=== PATIENT | female | born 1945 | race Caucasian/White ===

== ENCOUNTER 2018-01-28 21:14 | Observation (INO) | payer OTHER, MEDICARE ==
[~2018-01-28] VITALS: Ht 160 cm; Wt 51.4 kg
[2018-01-28 22:01] LABS: ALBUMIN 4.3 gm/dl (3.4-5.0); CALCIUM 9.3 mg/dl (8.5-10.1); CREATININE 0.87 mg/dl (0.60-1.20); POTASSIUM 3.3 mmol/L (3.5-5.1)
[2018-01-28 22:02] LABS: HEMATOCRIT 39.1 % (37-47); HEMOGLOBIN 13.8 g/dL (12.0-16.0); MEAN CELL VOLUME 88.5 fL (80-100); MEAN CORPUSCULAR HEMOGLOBIN 31.2 pg (25-34); MEAN CORPUSCULAR HGB CONC 35.3 g/dl (32-36); MEAN PLATELET VOLUME 9.2 fL (7.4-10.4); PLATELET COUNT 224 K/uL (130-400); RED CELL DISTRIBUTION WIDTH CV 12.8 % (11.5-14.5); WHITE BLOOD COUNT 7.36 K/uL (4.8-10.8)
[2018-01-28 22:06] LABS: CKMB 0.9 ng/ml (0.5-3.6); TOTAL PROTEIN 7.5 gm/dl (6.4-8.2)
[2018-01-28 22:07] LABS: PTT PATIENT 27.6 SECONDS (21.0-31.0)
[2018-01-28] MEDS ORDERED: NITROGLYCERIN 0.4 MG SL PER TAB CHARGE SL PRN (22:15)
[2018-01-28] MEDS ORDERED: LOSA50TA6 PO (22:32)
[2018-01-28] MEDS ORDERED: AMLO-110 PO (22:33)
[2018-01-28] MEDS ORDERED: CHOL20007 PO (22:34)
[2018-01-28] MEDS ORDERED: OMEG10007 PO (22:35)
[2018-01-28] MEDS ORDERED: CYAN500T13 PO (22:36)
[2018-01-28] MEDS ORDERED: ASPI81TA28 PO (22:36)
[2018-01-28] MEDS ORDERED: COEN100C11 PO (22:38)
[2018-01-28] MEDS ORDERED: MULT-506 PO (22:39)
[2018-01-28] MEDS ORDERED: ACET-1256 PO (22:39)
[2018-01-28] MEDS ORDERED: PRLSR20 PO (22:41)
[2018-01-28] MEDS ORDERED: PRAV20TA PO (22:43)
--- NOTE | 2018-01-28 22:53 | DIAGNOSTIC IMAGING REPORT ---
CHEST ONE VIEW PORTABLE CLINICAL HISTORY: 72 years-old Female presenting with chest pain. TECHNIQUE: Portable upright AP view of the chest was obtained. COMPARISON: None. FINDINGS: Cardiac silhouette mildly enlarged. Lungs hyperinflated. No focal opacity. No large effusion or pneumothorax. Partially visualized anterior cervical fusion hardware. Upper abdomen normal. IMPRESSION: 1. Hyperinflation suggests underlying emphysema. No focal infiltrate to suggest pneumonia. 2. Borderline cardiomegaly. Electronically signed by: Carlos Riddle M.D. 01/28/2018 10:52 PM Dictated Date/Time: 01/28/2018 10:51 PM
[2018-01-29] VITALS (7 sets, daily range): BP systolic 94–160; BP diastolic 62–89; PULSE 54–77; TEMP 36.5–36.7; O2SAT 95–97; Ht 160 cm; Wt 51.4 kg
[2018-01-29] MEDS ORDERED: ACETAMINOPHEN 325 MG TAB PO PRN (00:30)
[2018-01-29] MEDS ORDERED: ALUMINUM/MAGNESIUM/SIMETH (MAALOX MAX) 30 ML UDC PO PRN (00:30)
[2018-01-29] MEDS ORDERED: ONDANSETRON INJ 2 MG/ML 2 ML VIAL IV PRN (00:30)
[2018-01-29] MEDS ORDERED: MAGNESIUM HYDROXIDE SUSP 30 ML UDC PO PRN (00:30)
[2018-01-29] MEDS ORDERED: POLYETHYLENE (MIRALAX) 17 GM PACK PO PRN (00:30)
[2018-01-29] MEDS ORDERED: MoRPHine SULFATE 2 MG/ML CARP IV PRN ×2 (00:30)
[2018-01-29] MEDS ORDERED: NITROGLYCERIN 0.3 MG/1 TAB 100 TAB BTL SL PRN (00:30)
[2018-01-29] MEDS ORDERED: NITROGLYCERIN 0.4 MG SL PER TAB CHARGE SL PRN (00:30)
[2018-01-29] MEDS ORDERED: POTASSIUM CHLORIDE 20 MEQ TABCR PO STA (00:31)
[2018-01-29] MEDS ORDERED: HEPARIN 25000 UNIT/500 ML D5W ONE (00:45)
[2018-01-29] MEDS ORDERED: POTASSIUM CHLORIDE 10 MEQ TABCR ONE (00:45)
--- NOTE | 2018-01-29 00:52 | History and Physical ---
History & Physical Date & Time of Service: Jan 29, 2018 at 00:36 Chief Complaint: Chest Pain, Elevated Bp 180/100 Primary Care Physician: Yonatan Chamorro M.D. History of Present Illness Source: patient Paty is a 72 year old female with a PMH of HTN and HLD that presented to [facility] due to persistent chest pain Her chest pain started suddenly in the center of her chest at 8pm. She was sitting on her couch and watching tv when she started experiencing this pain. She says it feels like something is sitting on her chest. She says the pain radiates up to her neck and down her left arm. She says the pain is made worse with exertion and better with rest. She rates the pain as a 6/10 in severity. She has never had similar symptoms before Her associated symptoms include shortness of breath, dizziness and palpitations. She denies any diaphoresis, PND, persistent cough, abdominal pain, nausea, vomiting, recent trauma to her chest, sore throat/stuffy nose, or rashes In the ED her vitals were significant for a blood pressure of 166/103 but all her other vital signs are within normal limits. Her labs were significant for a potassium of 3.3. Her CXR showed borderline cardiomegaly, and emphysema. She had an EKG which showed st depressions in leads 2, AVF and v4-v 6. She had a negative troponin. Past Medical/Surgical History Medical Problems: (1) Chest pain (2) HLD (hyperlipidemia) (3) HTN (hypertension) Family History Cancer Diabetes mellitus Gallbladder disease Heart disease Hypertension Dad- stroke Mom- [place] Sister- Bypass and stents Social History Smoking Status: Never Smoker Smokeless Tobacco Use: No Alcohol Use: none Drug Use: none Marital Status: single Housing status: lives alone Occupational Status: retired Immunizations History of Influenza Vaccine: Unknown History of Tetanus Vaccine?: Unknown History of Pneumococcal: Unknown History of Hepatitis B Vaccine: Unknown Allergies Coded Allergies: Adhesives (Verified Allergy, Mild, ERRYTHEMA, 01/28/18) Latex (Verified Allergy, Mild, ERRYTHEMA, 01/28/18) Home Medications Scheduled Amlodipine (Norvasc), 5 MG PO DAILY Aspirin (Aspirin Ec), 81 MG PO DAILY Cholecalciferol (Vitamin D3), 2,000 UNITS PO DAILY Coenzyme Q10 (Ubidecarenone) (Coq-10), 100 MG PO DAILY Cyanocobalamin (Vitamin B12 500MCG), 500 MCG PO DAILY Fish Oil ([place]-3), 1,200 MG PO DAILY Losartan Potassium (Cozaar), 50 MG PO QAM Multivitamin (Multivitamin), 1 TAB PO DAILY Omeprazole (Prilosec), 20 MG PO DAILY Pravastatin (Pravachol ), 20 MG PO DAILY Scheduled PRN Acetaminophen (Tylenol), 500 MG PO Q8 PRN for Pain Review of Systems Constitutional: No fever, No chills, No weakness, No fatigue Respiratory: + shortness of breath, + dyspnea on exertion, No cough, No hemoptysis Cardiovascular: + chest pain, + palpitations, No orthopnea, No PND, No edema, No claudication Abdomen: No pain, No nausea, No vomiting, No diarrhea, No constipation Musculoskeletal: No swelling, No calf pain Genitourinary - Female: No dysuria, No urinary frequency, No urinary urgency Hematologic / Lymphatic: No abnormal bleeding/bruising, No clotting problems Integumentary: No rash, No itch, No new/changing skin lesions Physical Exam Vital Signs Date Time Temp Pulse Resp B/P (MAP) Pulse Ox O2 Delivery O2 Flow Rate FiO2 01/28/18 23:00 61 16 140/80 97 Room Air 01/28/18 22:30 65 16 138/78 96 Room Air 01/28/18 22:22 74 16 155/95 97 Room Air 01/28/18 21:42 60 01/28/18 21:38 100 Room Air 01/28/18 21:32 95 Room Air 01/28/18 21:25 Room Air 01/28/18 21:20 36.4 70 16 166/103 100 Room Air General Appearance: WD/WN, no apparent distress Head: normocephalic, atraumatic ENT: hearing grossly normal, pharynx normal Neck: supple, no JVD, no carotid bruits, trachea midline Respiratory/Chest: lungs clear, no respiratory distress, no accessory muscle use Cardiovascular: regular rate, rhythm, no edema, no murmur, normal peripheral pulses Abdomen/GI: normal bowel sounds, non tender, soft Extremities/Musculoskelatal: normal inspection, no calf tenderness, no pedal edema, non-tender Neurologic/Psych: alert, normal mood/affect, oriented x 3 Skin: normal color, warm/dry, no rash Diagnostics Laboratory Results Results Past 24 Hours Test 01/28/18 21:25 01/28/18 21:41 01/29/18 00:21 01/29/18 00:26 Range/Units White Blood Count 7.36 4.8-10.8 K/uL Red Blood Count 4.42 4.2-5.4 M/uL Hemoglobin 13.8 12.0-16.0 g/dL Hematocrit 39.1 37-47 % Mean Corpuscular Volume 88.5 80-100 fL Mean Corpuscular Hemoglobin 31.2 25-34 pg Mean Corpuscular Hemoglobin Concent 35.3 32-36 g/dl RDW Standard Deviation 41.0 36.4-46.3 fL RDW Coefficient of Variation 12.8 11.5-14.5 % Platelet Count 224 130-400 K/uL Mean Platelet Volume 9.2 7.4-10.4 fL Prothrombin Time 10.2 9.0-12.0 SECONDS Prothromb Time International Ratio 1.0 0.9-1.1 Activated Partial Thromboplast Time 27.6 21.0-31.0 SECONDS Partial Thromboplastin Ratio 1.1 Sodium Level 137 136-145 mmol/L Potassium Level 3.3 3.5-5.1 mmol/L Chloride Level 105 98-107 mmol/L Carbon Dioxide Level 25 21-32 mmol/L Anion Gap 7.0 3-11 mmol/L Blood Urea Nitrogen 10 7-18 mg/dl Creatinine 0.87 0.60-1.20 mg/dl Est Creatinine Clear Calc Drug Dose 48.8 ml/min Estimated GFR () 78.2 Estimated GFR (Non- 67.5 BUN/Creatinine Ratio 11.8 10-20 Random Glucose 98 70-99 mg/dl Calcium Level 9.3 8.5-10.1 mg/dl Total Bilirubin 0.5 0.2-1 mg/dl Aspartate Amino Transf (AST/SGOT) 19 15-37 U/L Alanine Aminotransferase (ALT/SGPT) 23 12-78 U/L Alkaline Phosphatase 100 45-117 U/L Total Creatine Kinase 65 26-192 U/L Creatine Kinase MB 0.9 0.5-3.6 ng/ml Creatine Kinase MB Ratio 1.4 0-3.0 Total Protein 7.5 6.4-8.2 gm/dl Albumin 4.3 3.4-5.0 gm/dl Globulin 3.2 2.5-4.0 gm/dl Albumin/Globulin Ratio 1.4 0.9-2 Bedside Troponin I < 0.030 0-0.045 ng/ml Diagnostic Radiology CXR borderline cardiomegaly and emphysema EKG ST depressions in lead 2, Avf and v4-v6 Impression Assessment and Plan Paty is a 72 year old female with a PMH of HLD and HTN that presented to [facility] with chest pain Acute coronary syndrome (unstable angina) - trend trop - repeat EKG - nitro and morphine prn chest pain - heparin drip - O2 as needed - continue statin - order Hba1c and lipid panel Hypokalemia and hx of persistent HTN - order renin and aldosterone to assess for hyperaldosteronism - follow up with PCP Hypokalemia - K of 3.3 - order Mag - administer 40 meq of potassium PO - repeat bmp HTN - continue losartan and norvasc HLD - continue pravastatin DVT prophylaxis - heparin drip FULL CODE Attending addendum: I have physically seen this patient, have supervised the medical residents activities, and agree with the H&P unless as otherwise noted. Assessment and Plan: Acute coronary syndrome/unstable angina/hypertension/hypokalemia-- The patient will be admitted to telemetry for serial cardiac enzymes, serial EKG's, cardiac rhythm monitoring and a 2-D echocardiogram with Dopplers. Heparin drip per standard concentration with low bolus. We will hemoglobin A1c and fasting lipid panel. Order renin and aldosterone levels to assess for hyperaldosteronism. Give 40 mEq potassium chloride now. Continue losartan and Norvasc. Check serial BMP, CBC with differential and magnesium levels. Hyperlipidemia continue pravastatin Advanced Directives Existing Advance Directive: No Existing Living Will: No Existing Power of Director Of Labor Relations: No Resuscitation Status VTE Prophylaxis Will order VTE Prophylaxis: Yes
[2018-01-29 01:14] LABS: BASO % 0.7 %; BASO ABS # 0.05 K/uL (0-0.2); EOS % 2.6 %; EOS ABS # 0.19 K/uL (0-0.5); IG# 0.01 K/uL (0.00-0.02); LYMPH % 33.2 %; MONO % 10.1 %; MONO ABS # 0.73 K/uL (0.11-0.59); NEUT % 53.3 %; NEUT ABS # 3.85 K/uL (1.4-6.5)
[2018-01-29] MEDS ORDERED: HEPARIN 25,000 UNIT/500ML D5W 500 ML IV SCH (02:45)
--- NOTE | 2018-01-29 02:54 | EMERGENCY ROOM VISIT NOTE ---
History Report prepared by Adis: Juanito Woo Under the Supervision of: Dr. Gil Smith M.D. First contact with patient: 21:59 Chief Complaint: CHEST PAIN Stated Complaint: CHEST PAIN, ELEVATED BP 180/100 Nursing Triage Summary: Pt reports " burning" midsternal chest discomfort radiates to neck starting at 1999 this evening. Pt c/o SOb with pain. Pt took 3 baby ASA today. History of Present Illness The patient is a 72 year old female who presents to the Emergency Room with complaints of constant chest pain that began at 1999. She rates her pain as a 5/ 10 in severity. She describes the pain as a burning sensation The patient states she developed nausea around dinner time. She reports that she then was watching television when she developed chest pain, shortness of breath, and dizziness. The patient states her pain radiated to her jaw and neck. She reports she took 3 Aspirin for her symptoms. The patient states she has been experiencing this chest pain almost every day for the last couple of weeks. She reports saw her PCP, Dr. Chamorro, for her symptoms who was concerned about the patient's heart. The patient states she scheduled an appointment with Cardiology in two weeks. Dr. Chamorro. The patient denies LOC, headache, fevers, chills, diaphoresis, visual changes, vomiting, abdominal pain, back pain, melena , hematochezia, urinary symptoms, numbness, weakness, lymphadenopathy, rash, or other complaints. Source of History: patient Onset: 1999 Position: chest Symptom Intensity: 5/10 Quality: burning Timing: constant Modifying Factors (Relieving): other (Aspirin) Associated Symptoms: + SOB, + nausea Note: Associated symptoms: dizziness Review of Systems See HPI for pertinent positives and negatives. A total of ten systems were reviewed and were otherwise negative. Past Medical & Surgical Medical Problems: (1) Chest pain (2) HLD (hyperlipidemia) (3) HTN (hypertension) Family History Cancer Diabetes mellitus Gallbladder disease Heart disease Hypertension Social History Smoking Status: Never Smoker Housing Status: lives alone Occupation Status: retired Current/Historical Medications Scheduled Amlodipine (Norvasc), 5 MG PO DAILY Aspirin (Aspirin Ec), 81 MG PO DAILY Cholecalciferol (Vitamin D3), 2,000 UNITS PO DAILY Coenzyme Q10 (Ubidecarenone) (Coq-10), 100 MG PO DAILY Cyanocobalamin (Vitamin B12 500MCG), 500 MCG PO DAILY Fish Oil ([place]-3), 1,200 MG PO DAILY Losartan Potassium (Cozaar), 50 MG PO QAM Multivitamin (Multivitamin), 1 TAB PO DAILY Omeprazole (Prilosec), 20 MG PO DAILY Pravastatin (Pravachol ), 20 MG PO DAILY Scheduled PRN Acetaminophen (Tylenol), 500 MG PO Q8 PRN for Pain Allergies Coded Allergies: Adhesives (Verified Allergy, Mild, ERRYTHEMA, 01/28/18) Latex (Verified Allergy, Mild, ERRYTHEMA, 01/28/18) Physical Exam Vital Signs Date Time Temp Pulse Resp B/P (MAP) Pulse Ox O2 Delivery O2 Flow Rate FiO2 01/28/18 23:00 61 16 140/80 97 Room Air 01/28/18 22:30 65 16 138/78 96 Room Air 01/28/18 22:22 74 16 155/95 97 Room Air 01/28/18 21:42 60 01/28/18 21:38 100 Room Air 01/28/18 21:32 95 Room Air 01/28/18 21:25 Room Air 01/28/18 21:20 36.4 70 16 166/103 100 Room Air Physical Exam GENERAL: Awake, alert, well-appearing, in no distress HENT: Normocephalic, atraumatic. Oropharynx unremarkable. EYES: Normal conjunctiva. Sclera non-icteric. NECK: Supple. No nuchal rigidity. FROM. No masses. RESPIRATORY: Clear to auscultation. No wheezes. No rales. Normal respiratory effort. CARDIAC: Normal rate. Normal rhythm. No murmurs. No rubs. Extremities warm and well perfused. Pulses equal. No JVD. GI: Soft, non-distended. No tenderness to palpation. No rebound or guarding. No masses. RECTAL: Deferred. MUSCULOSKELETAL: Atraumatic. Chest examination reveals no tenderness. The back is symmetrical on inspection without obvious abnormality. There is no CVA tenderness to palpation. No joint edema. LOWER EXTREMITIES: Calves are equal size bilaterally and non-tender. No edema. No discoloration. NEURO: Normal sensorium. No sensory or motor deficits noted. SKIN: No rash or jaundice noted. Medical Decision & Procedures ER Provider Diagnostic Interpretation: X-ray: Per my interpretation and review. Chest x-ray. Findings: A chest x-ray was performed and revealed no pneumothorax , effusion, infiltrate, pulmonary edema, free air under the diaphragm, or wide mediastinum. Laboratory Results 01/28/18 21:25 Red Blood Count 4.42, Mean Corpuscular Volume 88.5, Mean Corpuscular Hemoglobin 31.2, Mean Corpuscular Hemoglobin Concent 35.3, Mean Platelet Volume 9.2, Neutrophils (%) (Auto) 53.3, Lymphocytes (%) (Auto) 33.2, Monocytes (%) (Auto) 10.1, Eosinophils (%) (Auto) 2.6, Basophils (%) (Auto) 0.7, Neutrophils # (Auto ) 3.85, Lymphocytes # (Auto) 2.40, Monocytes # (Auto) 0.73, Eosinophils # (Auto ) 0.19, Basophils # (Auto) 0.05 01/28/18 21:25 Test 01/28/18 21:25 01/28/18 21:41 01/29/18 00:26 White Blood Count 7.36 K/uL (4.8-10.8) Red Blood Count 4.42 M/uL (4.2-5.4) Hemoglobin 13.8 g/dL (12.0-16.0) Hematocrit 39.1 % (37-47) Mean Corpuscular Volume 88.5 fL (80-100) Mean Corpuscular Hemoglobin 31.2 pg (25-34) Mean Corpuscular Hemoglobin Concent 35.3 g/dl (32-36) Platelet Count 224 K/uL (130-400) Mean Platelet Volume 9.2 fL (7.4-10.4) Neutrophils (%) (Auto) 53.3 % Lymphocytes (%) (Auto) 33.2 % Monocytes (%) (Auto) 10.1 % Eosinophils (%) (Auto) 2.6 % Basophils (%) (Auto) 0.7 % Neutrophils # (Auto) 3.85 K/uL (1.4-6.5) Lymphocytes # (Auto) 2.40 K/uL (1.2-3.4) Monocytes # (Auto) 0.73 K/uL (0.11-0.59) Eosinophils # (Auto) 0.19 K/uL (0-0.5) Basophils # (Auto) 0.05 K/uL (0-0.2) RDW Standard Deviation 41.0 fL (36.4-46.3) RDW Coefficient of Variation 12.8 % (11.5-14.5) Immature Granulocyte % (Auto) 0.1 % Immature Granulocyte # (Auto) 0.01 K/uL (0.00-0.02) Nucleated RBC Absolute Count (auto) 0.00 K/uL (0-0) Nucleated Red Blood Cells % 0.0 % Prothrombin Time 10.2 SECONDS (9.0-12.0) Prothromb Time International Ratio 1.0 (0.9-1.1) Activated Partial Thromboplast Time 27.6 SECONDS (21.0-31.0) Partial Thromboplastin Ratio 1.1 Anion Gap 7.0 mmol/L (3-11) Est Creatinine Clear Calc Drug Dose 48.8 ml/min Estimated GFR () 78.2 Estimated GFR (Non- 67.5 BUN/Creatinine Ratio 11.8 (10-20) Calcium Level 9.3 mg/dl (8.5-10.1) Total Bilirubin 0.5 mg/dl (0.2-1) Aspartate Amino Transf (AST/SGOT) 19 U/L (15-37) Alanine Aminotransferase (ALT/SGPT) 23 U/L (12-78) Alkaline Phosphatase 100 U/L (45-117) Total Creatine Kinase 65 U/L (26-192) Creatine Kinase MB 0.9 ng/ml (0.5-3.6) Creatine Kinase MB Ratio 1.4 (0-3.0) Total Protein 7.5 gm/dl (6.4-8.2) Albumin 4.3 gm/dl (3.4-5.0) Globulin 3.2 gm/dl (2.5-4.0) Albumin/Globulin Ratio 1.4 (0.9-2) Bedside Troponin I < 0.030 ng/ml (0-0.045) Laboratory results reviewed by me Medications Administered Medications (Trade) Dose Ordered Sig/Enoch Route Start Time Stop Time Status Last Admin Dose Admin Nitroglycerin (Nitrostat Tab) 0.4 mg Q5M PRN SL 01/28/18 22:15 01/29/18 01:48 DC 01/28/18 22:22 0.4 MG ECG Per My Interpretation Indication: chest pain Rate (beats per minute): 70 Rhythm: normal sinus Findings: nonspecific-ST abn, PAC ED Course 2208: The patient was evaluated in room C02B. A complete history and physical exam was performed. 2214: Ordered Nitroglycerin 0.4 mg SL. 2338: I discussed the patients case with Dr. Carrasco [facility] Hospitalist. He understands the patients case and agrees to accept the patient. The patient will be further evaluated. Medical Decision Prior records/ancillary studies reviewed. Triage Nursing notes reviewed and agree them. Additional history obtained from the family. The patient's history was concerning for chest pain. Differential diagnosis: Etiologies such as cardiac ischemia, aortic dissection, pulmonary embolism, pneumonia, pneumothorax, musculoskeletal, infections, pericarditis, myocarditis , esophageal rupture, gastrointestinal, as well as others were entertained. Physical examination: As above. ER treatment provided: Sublingual nitroglycerin The patient had taken aspirin. Diagnostic interpretation by me: The electrocardiogram was negative for pathologic change. The labs revealed an unremarkable CBC and chemistry panel. Cardiac markers negative. Imaging studies: Chest x-ray as above. The patient has had intermittent but escalating substernal chest pain. She will need further evaluation and management in the hospital. Consultation: A consultation was placed with the hospitalist. The case was discussed and diagnostics were reviewed. The patient was evaluated in the ER for further treatment. Medication Reconcilliation Current Medication List: was personally reviewed by me Blood Pressure Screening Patient's blood pressure: Elevated blood pressure Referred to Hospitalist Consults Time Called: [id number] Consulting Physician: Dr. Carrasco [facility] Hospitalist Returned Call: [phone] I discussed the patients case with Dr. Carrasco [facility] Hospitalist. He understands the patients case and agrees to accept the patient. The patient will be further evaluated. Impression Primary Impression: Substernal precordial chest pain Scribe Attestation The scribe's documentation has been prepared under my direction and personally reviewed by me in its entirety. I confirm that the note above accurately reflects all work, treatment, procedures, and medical decision making performed by me. Departure Information Dispostion Being Evaluated By Hospitalist Referrals Yonatan Chamorro M.D. (PCP) Patient Instructions My [facility]
[2018-01-29] MEDS: SODIUM CHLORIDE 0.9% 1000ML 1,000 ML IV SCH ×2 (03:01→13:17)
[2018-01-29] MEDS ORDERED: IV FLUIDS COMPLETED PRN (06:30)
[2018-01-29 07:58] LABS: PTT PATIENT 105.9 SECONDS (21.0-31.0)
[2018-01-29] MEDS ORDERED: LOSARTAN POTASSIUM 50 MG TAB PO SCH (09:00)
[2018-01-29] MEDS ORDERED: PRAVASTATIN SOD 20 MG TAB PO SCH (09:00)
[2018-01-29] MEDS ORDERED: AMLODIPINE BESYLATE 5 MG TAB PO SCH (09:00)
[2018-01-29] MEDS ORDERED: HYDROCHLOROTHIAZIDE 25 MG TAB PO ONE (09:31)
[2018-01-29 09:34] LABS: CHOLESTEROL 161 mg/dl (0-200); LDL CHOLESTEROL CALCULATED 95 mg/dl
[2018-01-29 10:04] LABS: HEMOGLOBIN A1C 5.4 % (4.5-5.6)
[2018-01-29] MEDS ORDERED: ASPIRIN 81 MG ECTAB PO STA (10:10)
[2018-01-29] MEDS ORDERED: DOBUTamine HCL 12.5 MG/ML 20 ML VIAL ONE (10:35)
[2018-01-29] MEDS ORDERED: METOPROLOL TARTRATE 1 MG/ML VIAL ONE ×2 (10:35→10:36)
[2018-01-29] MEDS ORDERED: ATROPINE SULFATE 0.1 MG/ML 5ML SYR ONE ×2 (10:36)
[2018-01-29] MEDS ORDERED: PERFLUTREN LIPID MICROSPHERE (DEFINITY) IV ONE (11:04)
--- NOTE | 2018-01-29 11:56 | CARDIOLOGY CONSULTATION ---
DATE OF CONSULTATION: 01/29/2018 TIME: 10:06 a.m. CONSULTING PHYSICIAN: Dr. Ochoa REASON FOR CONSULTATION: Unstable angina. HISTORY OF PRESENT ILLNESS: Mrs. Sibley is a pleasant 72-year-old female with a history significant for mild nonobstructive CAD based on March 2016 catheterization, hypertension, dyslipidemia. She previously has followed with [facility], but has an upcoming appointment with [facility] in the next 2 weeks. She has been having intermittent chest discomfort for at least 3 years. She describes the discomfort as a substernal chest pain that radiates to her neck and jaw as a squeezing and pressure sensation. It is not associated with exertion, but sometimes can worsen with exertion. In March 2016, she underwent a coronary angiography for these symptoms at [facility]. She was told that she did not have CAD, but according to prior feller operator's notes, she had mild nonobstructive CAD and her pain was thought to be noncardiac in nature. Yesterday while watching TV in a seated position and while on the telephone having a nonstressful conversation, she developed the same chest discomfort. It started at 8:00 p.m. and did not resolve until 1:00 a.m. She was given nitroglycerin which may have offered her some mild relief. She noted at home that her blood pressure was 180/100 mmHg when she had this pain. She had mild dyspnea, but no diaphoresis. No other associated symptoms. She noted that walking around her home did cause mild worsening of the pain. The pain eventually resolved while she was hospitalized and has not recurred. She states that she has had intermittent palpitations for years. She states that sometimes her heart rate can be in the 40s and other times can be mildly tachycardic. She has had outpatient monitoring and has not had any specific diagnosis. The palpitations occur most days and she has had palpitations while hospitalized here. Telemetry has not demonstrated any arrhythmia. Since October she has had dyspnea with exertion while climbing hills or walking fast. She walks every day for 15 minutes. This is a new symptom for her. She tries to maintain a low sodium diet. She denies orthopnea, PND, or shortness of breath at rest. She denies syncope, near syncope, or edema. She admits that she has intermittent nausea and difficulty swallowing. She has had EGDs in the past. She also has myalgias. Her statin therapy has been stopped and then restarted. The ER physician in the recent past has told her the amlodipine could be causing her symptoms. Her PCP, Dr. Chamorro, has been adjusting her antihypertensive regimen by recently increasing losartan from 25 mg to 50 mg daily. Her pravastatin was also recently restarted at 20 mg daily. She notices that her blood pressure tends to be higher in the evenings. REVIEW OF SYSTEMS: As above and review of systems otherwise negative/unremarkable. PAST MEDICAL HISTORY: 1. Mild nonobstructive CAD, in March 2016 cardiac catheterization at [facility] [place]. Records are being requested. 2. Chronic atypical chest discomfort. 3. Hypertension. 4. Dyslipidemia. 5. Acid reflux. 6. Osteoporosis. 7. Chronic palpitations. HOME MEDICATIONS: Include amlodipine 5 mg daily, aspirin 81 mg daily, fish oil, losartan 50 mg daily, pravastatin 20 mg daily, Prilosec. INPATIENT MEDICATIONS: Include: 1. Heparin drip. 2. Amlodipine 5 mg daily. 3. Losartan 50 mg daily. 4. Pravastatin 20 mg daily. ALLERGIES: LISTED ADHESIVES AND LATEX. She denied any known drug allergies. SOCIAL HISTORY: Denies tobacco, alcohol, or drug abuse. She has never been . She has no children. She lives alone. 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 FAMILY HISTORY: Her mother had myocardial infarction. Her dad had stroke. PHYSICAL EXAMINATION: VITAL SIGNS: Temperature 36.7 degrees, heart rate 68 beats per minute, respiration rate 20, blood pressure 107/69 mmHg, oxygen saturation 96% on room air. Weight 51.4 kg. GENERAL: In no acute distress. She is alert and oriented. HEENT: Anicteric sclerae. NECK: No appreciable JVD. No bruits. Normal carotid upstrokes bilaterally. CARDIAC EXAMINATION: No ventricular heave. PMI was nondisplaced. Regular, normal S1, S2. There were no audible murmurs, rubs, or gallops. LUNGS: Clear to auscultation bilaterally without wheezes, rales, or rhonchi. ABDOMEN: Soft, nontender, nondistended. Normoactive bowel sounds. EXTREMITIES: No cyanosis or edema. 1+ right radial pulse, 2+ left radial pulse (She has had prior coronary angiography via the right radial artery). 2+ dorsalis pedis pulses bilaterally. No cyanosis or pitting edema. No palpable cords. PSYCHIATRIC: Affect appears appropriate. CHEST: Tenderness along the sternum reproducing her chest discomfort upon presentation. SKIN: No rash. LABORATORY DATA: White blood cell count is 7.36, hemoglobin 13.8, platelets 224. Sodium 137, potassium 3.3, BUN 10, creatinine 0.87. Troponin undetectable x3. Albumin 4.3, AST 19, ALT 23. LDL 95, triglycerides 57, total cholesterol 161, HDL 55. INR 1. She also reports having a D-dimer 3 weeks ago at the Emergency Department at [facility] and that was unremarkable according to her report. Chest x-ray suggests underlying emphysema per radiology. No focal infiltrate. Chest x-ray image personally reviewed. No obvious infiltrate or suspicion for CHF upon personal review. No pleural effusion. Outpatient chart reviewed. First ECG personally reviewed. The ECG upon presentation demonstrated sinus rhythm at 70 beats per minute with a nonspecific ST abnormality. Telemetry personally reviewed. No arrhythmia. ASSESSMENT AND PLAN: 1. 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 Her chest discomfort is atypical and not likely ischemic in origin as she has had several hours of chest discomfort with negative troponins. Given her dyspnea with exertion, however, a dobutamine stress echo was ordered. She states that she is unable to walk on a treadmill. If unremarkable, we would recommend further evaluation for noncardiac chest pain. Musculoskeletal pain is a possibility as she is tender in that area reproducing her pain. Heparin drip can be discontinued as she does not have unstable angina. 2. Coronary artery disease: She has mild nonobstructive coronary artery disease per report from March 2016 coronary angiography. Cardiac catheterization report requested for review. Continue aspirin 81 mg daily. This was ordered at this time. We would recommend high intensity statin therapy, but that there have been concerns for statin-induced myalgias. No change was made to her chronic dose of pravastatin. Blood pressure control is important. Continue ARB. She is not on a beta-marybeth. She has had reported bradycardia in the past with symptoms. 3. Hypertension: She tends to be hypertensive in the evenings. HCTZ 12.5 mg daily added to her current regimen. Hypertension may have played a role in her chest discomfort as well, although there appears to be a musculoskeletal component. 4. Dyspnea with exertion: Etiology uncertain. There is a concern for emphysema according to radiology on chest x-ray imaging. Dobutamine stress echo ordered. If unremarkable, we would recommend further evaluation from a pulmonary status. She apparently had a negative D-dimer recently despite these symptoms for the past 4 months. 5. Disposition: If dobutamine stress echo is unremarkable, no further cardiac evaluation necessary as an inpatient. She has an appointment already scheduled in the next 2-3 weeks in the [facility] office. She was advised to keep this appointment. The patient's care has been communicated with Dr. Gaines of the primary hospitalist service. Thank for allowing me to participate in care of Ms. Sibley. Sincerely,
--- NOTE | 2018-01-29 16:13 | Discharge Instructions ---
Discharge Instructions Date of Service Jan 29, 2018. Admission Reason for Admission: Chest Pain Discharge Discharge Diagnosis / Problem: chest pain - likely muscular Discharge Goals Goal(s): Diagnostic testing Activity Recommendations Activity Limitations: resume your previous activity . Instructions / Follow-Up Instructions / Follow-Up chest pain -fortunately with your cardiac enzymes being negative, this was clearly not a heart attack, and with your stress test being negative, it's highly unlikely to have been angina -more than likely with you neck and spine issues, the pain is from muscles/ ligaments/fascia. [facility]'re not seeing anything surgical (highly unlikely) and then we think you'd benefit a lot from manipulative medicine with Dr Luis Resendiz (a partner of Dr Chamorro, but who does a lot of hands-on manipulative medicine that often really helps with this kind of pain) Current Hospital Diet Patient's current hospital diet: Regular Diet Discharge Diet Recommended Diet: Regular Diet Pending Studies Studies pending at discharge: no Laboratory Results Hemoglobin A1c Test 01/29/18 08:23 Range/Units Estimated Average Glucose 108 mg/dl Hemoglobin A1c 5.4 4.5-5.6 % Lipid Panel Test 01/29/18 08:23 Range/Units Triglycerides Level 57 0-150 mg/dl Cholesterol Level 161 0-200 mg/dl HDL Cholesterol 55 mg/dl Cholesterol/HDL Ratio 2.9 LDL Cholesterol, Calculated 95 mg/dl Medical Emergencies . Who to Call and When: Medical Emergencies: If at any time you feel your situation is an emergency, please call 911 immediately. . Non-Emergent Contact Non-Emergency issues call your: Primary Care Provider . . "Provider Documentation" section prepared by Nicola Gaines. .
--- NOTE | 2018-01-29 17:25 | DOBUTAMINE ECHO ---
*NOTICE TO RECEIVING [employer]ENCY This information is strictly Confidential and protected under [place] law. [place] law prohibits you from making any further disclosure of this information unless further disclosure is expressly permitted by the written consent of the person to whom it pertains or is authorized by law. A general authorization for the release of medical or other information is not sufficient for this purpose. Hospital accepts no responsibility if the information is made available to any other person, INCLUDING THE PATIENT. Interpretation Summary * Name: TATA VALERO Study Date: 01/29/2018 09:38 AM BP: 122/67 mmHg * Patient Location: [facility]\S\N283\S\1 HR: 68 * : 1945 (M/d/yyyy) Gender: Female Height: 63 in * Age: 72 yrs Ethnicity: CA Weight: 113 lb * Ordering Physician: Amandeep Rust MD * Referring Physician: Yonatan Chamorro * Performed By: Elizabeth Witt RDCS * * Reason For Study: DAVIS * BSA: 1.5 m2 * -- Conclusions -- * Dobutamine Stress Echo: * 1. Negative Dobutamine stress echo for ischemia at 92 % MPHR. * 2. Negative Dobutamine ECG for ischemia at 92 % MPHR. * 3. Appropriate blood pressure response. * 4. No arrhythmia. * 5. Chest pain was reported. * 6. Technically difficult study, enhanced with IV Definity. * Echo: * 1. Normal left ventricular size and systolic function. EF 60-65%. No regional wall motion abnormalities. No left ventricular hypertrophy. Type 2 diastolic dysfunction, pseudo normalized pattern. * 2. No significant valvular abnormalities. * 3. Technically difficult study. Procedure Details * DOBUTAMINE ECHO, CPT#[id number] * ECHO DOPPLER, CPT #[id number] * ECHO COLOR FLOW, CPT #[id number] * A contrast injection of Definity was performed to improve assessment of LV function. * Contrast was injected into an intravenous site in the left arm. * One vial of Definity ultrasound contrast was diluted in normal saline to a total volume of 10 ml. A total of '6' ml of solution was administered during imaging. * Lot # [id number] of Definity utilized for procedure. * Expiration date 01/29. * The attending nurse who injected the contrast agent was GHANSHYAM FLORES RN. Left Ventricle * The left ventricle is normal in size. * There is normal left ventricular wall thickness. * Left ventricular systolic function is normal. * Resting wall motion: Normal. Stress wall motion: Appropriate increase in Left ventricular systolic function and decrease in cavity size. No stress induced segmental wall motion abnormalities. * The left ventricular ejection fraction increases normally with stress. The left ventricular end-systolic cavity size reduces post-stress (normal response). The left ventricular wall motion with stress is normal. Right Ventricle * The right ventricle is normal in size and function. * The right ventricular systolic function is normal as assessed by tricuspid annular plane systolic excursion (TAPSE) (normal >1.5 cm). Atria * The left atrial size is normal. * Right atrial size is normal. * There is no evidence of atrial septal defect, but resolution does not allow assessment for a patent foramen ovale. Mitral Valve * The mitral valve is grossly normal. * There is no mitral valve stenosis. * Significant mitral regurgitation is absent. Tricuspid Valve * The tricuspid valve is not well visualized, but is grossly normal. * There is no tricuspid stenosis. * There is mild tricuspid regurgitation. Aortic Valve * The aortic valve is trileaflet. * No hemodynamically significant valvular aortic stenosis. * There is no significant aortic regurgitation. Pulmonic Valve * The pulmonary valve is inadequately visualized, but the Doppler data is adequate for interpretation. * Trace pulmonic valvular regurgitation. Great Vessels * The aortic root is normal size. * Ascending aorta of normal dimension * Normal pulmonary venous flow pattern. Pericardium * There is no pericardial effusion. Stress Parameters * Sinus rhythm at 68 bpm. * No significant ST changes. No arrhythmia. * Rest heart rate was '68' BPM. * Rest blood pressure was '122/67' * Maximum heart rate achieved was 139 bpm. * Maximum heart rate was 92 % of maximum age-predicted heart rate. * Maximum blood pressure was '132/63' * Total exercise time was '10:59' * Maximum Dobutamine infusion rate was '30' mcg/kg/min. * Dobutamine infusion was terminated due to achieving target heart rate * A total of 5 mg of IV Metoprolol was administered to reverse Dobutamine-induced tachycardia. * The patient exhibited chest pain during the drug infusion. * Target heart rate achieved. MMode 2D Measurements and Calculations IVSd 0.99 cm IVSs 1.1 cm LVIDd 3.7 cm LVIDs 2.6 cm LVPWd 0.72 cm LVPWs 1.0 cm IVS/LVPW 1.4 FS 29.4 % EDV(Teich) 57.6 ml ESV(Teich) 24.7 ml EF(Teich) 57.2 % EDV(cubed) 50.1 ml ESV(cubed) 17.6 ml EF(cubed) 64.8 % % IVS thick 16.0 % % LVPW thick 39.6 % LV mass(C)d 89.9 grams LV mass(C)dI 59.3 grams/m\S\2 LV mass(C)s 75.7 grams LV mass(C)sI 49.9 grams/m\S\2 SV(Teich) 32.9 ml SI(Teich) 21.7 ml/m\S\2 SV(cubed) 32.4 ml SI(cubed) 21.4 ml/m\S\2 Ao root diam 3.1 cm Ao root area 7.5 cm\S\2 ACS 1.6 cm LA dimension 2.5 cm asc Aorta Diam 2.9 cm LA/Ao 0.80 LVOT diam 1.8 cm LVOT area 2.6 cm\S\2 LVAd ap4 25.6 cm\S\2 LVLd ap4 7.4 cm EDV(MOD-sp4) 74.3 ml EDV(sp4-el) 75.2 ml LVAs ap4 12.5 cm\S\2 LVLs ap4 5.6 cm ESV(MOD-sp4) 23.4 ml ESV(sp4-el) 23.7 ml EF(MOD-sp4) 68.5 % EF(sp4-el) 68.4 % SV(MOD-sp4) 50.9 ml SI(MOD-sp4) 33.5 ml/m\S\2 SV(sp4-el) 51.4 ml SI(sp4-el) 33.9 ml/m\S\2 Doppler Measurements and Calculations MV E max maxwell 93.8 cm/sec MV A max maxwell 51.2 cm/sec MV E/A 1.8 MV dec time 0.25 sec Ao V2 max 130.3 cm/sec Ao max PG 6.8 mmHg Ao max PG (full) 2.6 mmHg OSMIN(V,A) 2.0 cm\S\2 OSMIN(V,D) 2.0 cm\S\2 LV V1 max PG 4.2 mmHg LV V1 max 102.5 cm/sec MR max maxwell 302.8 cm/sec MR max PG 36.7 mmHg PA V2 max 70.1 cm/sec PA max PG 2.0 mmHg PI end-d maxwell 69.0 cm/sec TR max maxwell 229.5 cm/sec
--- NOTE | 2018-01-29 18:09 | Discharge Summary ---
Discharge Summary Date of Service Jan 29, 2018. Discharge Summary Admission Date: Jan 29, 2018 at 00:26 Discharge Date: Jan 29, 2018 Discharge Disposition: Home Principal Diagnosis: chest pain - likely musculoskeletal Procedures: stress echo: Interpretation Summary * Name: TATA SIBLEY Study Date: 01/29/2018 09:38 AM BP: 122/67 mmHg * Patient Location: [facility]\S\83\S\1 HR: 68 * : 1945 (M/d/yyyy) Gender: Female Height: 63 in * Age: 72 yrs Ethnicity: CA Weight: 113 lb * Ordering Physician: Amandeep Rust MD * Referring Physician: Yonatan Chamorro * Performed By: Elizabeth Witt RDCS * * Reason For Study: DAVIS * BSA: 1.5 m2 * -- Conclusions -- * Dobutamine Stress Echo: * 1. Negative Dobutamine stress echo for ischemia at 92 % MPHR. * 2. Negative Dobutamine ECG for ischemia at 92 % MPHR. * 3. Appropriate blood pressure response. * 4. No arrhythmia. * 5. Chest pain was reported. * 6. Technically difficult study, enhanced with IV Definity. * Echo: * 1. Normal left ventricular size and systolic function. EF 60-65%. No regional wall motion abnormalities. No left ventricular hypertrophy. Type 2 diastolic dysfunction, pseudo normalized pattern. * 2. No significant valvular abnormalities. * 3. Technically difficult study. Procedure Details * DOBUTAMINE ECHO, CPT#[id number] * ECHO DOPPLER, CPT #[id number] * ECHO COLOR FLOW, CPT #[id number] * A contrast injection of Definity was performed to improve assessment of LV function. * Contrast was injected into an intravenous site in the left arm. * One vial of Definity ultrasound contrast was diluted in normal saline to a total volume of 10 ml. A total of '6' ml of solution was administered during imaging. * Lot # [id number] of Definity utilized for procedure. * Expiration date 01/29. * The attending nurse who injected the contrast agent was GHANSHYAM FLORES RN. Left Ventricle * The left ventricle is normal in size. * There is normal left ventricular wall thickness. * Left ventricular systolic function is normal. * Resting wall motion: Normal. Stress wall motion: Appropriate increase in Left ventricular systolic function and decrease in cavity size. No stress induced segmental wall motion abnormalities. * The left ventricular ejection fraction increases normally with stress. The left ventricular end-systolic cavity size reduces post-stress (normal response). The left ventricular wall motion with stress is normal. Right Ventricle * The right ventricle is normal in size and function. * The right ventricular systolic function is normal as assessed by tricuspid annular plane systolic excursion (TAPSE) (normal >1.5 cm). Atria * The left atrial size is normal. * Right atrial size is normal. * There is no evidence of atrial septal defect, but resolution does not allow assessment for a patent foramen ovale. Mitral Valve * The mitral valve is grossly normal. * There is no mitral valve stenosis. * Significant mitral regurgitation is absent. Tricuspid Valve * The tricuspid valve is not well visualized, but is grossly normal. * There is no tricuspid stenosis. * There is mild tricuspid regurgitation. Aortic Valve * The aortic valve is trileaflet. * No hemodynamically significant valvular aortic stenosis. * There is no significant aortic regurgitation. Pulmonic Valve * The pulmonary valve is inadequately visualized, but the Doppler data is adequate for interpretation. * Trace pulmonic valvular regurgitation. Great Vessels * The aortic root is normal size. * Ascending aorta of normal dimension * Normal pulmonary venous flow pattern. Pericardium * There is no pericardial effusion. Stress Parameters * Sinus rhythm at 68 bpm. * No significant ST changes. No arrhythmia. * Rest heart rate was '68' BPM. * Rest blood pressure was '122/67' * Maximum heart rate achieved was 139 bpm. * Maximum heart rate was 92 % of maximum age-predicted heart rate. * Maximum blood pressure was '132/63' * Total exercise time was '10:59' * Maximum Dobutamine infusion rate was '30' mcg/kg/min. * Dobutamine infusion was terminated due to achieving target heart rate * A total of 5 mg of IV Metoprolol was administered to reverse Dobutamine- induced tachycardia. * The patient exhibited chest pain during the drug infusion. * Target heart rate achieved. Last 24 Hours Test 01/28/18 21:25 01/28/18 21:41 01/29/18 01:36 01/29/18 07:12 White Blood Count 7.36 K/uL Red Blood Count 4.42 M/uL Hemoglobin 13.8 g/dL Hematocrit 39.1 % Mean Corpuscular Volume 88.5 fL Mean Corpuscular Hemoglobin 31.2 pg Mean Corpuscular Hemoglobin Concent 35.3 g/dl Platelet Count 224 K/uL Mean Platelet Volume 9.2 fL Neutrophils (%) (Auto) 53.3 % Lymphocytes (%) (Auto) 33.2 % Monocytes (%) (Auto) 10.1 % Eosinophils (%) (Auto) 2.6 % Basophils (%) (Auto) 0.7 % Neutrophils # (Auto) 3.85 K/uL Lymphocytes # (Auto) 2.40 K/uL Monocytes # (Auto) 0.73 K/uL Eosinophils # (Auto) 0.19 K/uL Basophils # (Auto) 0.05 K/uL RDW Standard Deviation 41.0 fL RDW Coefficient of Variation 12.8 % Immature Granulocyte % (Auto) 0.1 % Immature Granulocyte # (Auto) 0.01 K/uL Nucleated RBC Absolute Count (auto) 0.00 K/uL Nucleated Red Blood Cells % 0.0 % Prothrombin Time 10.2 SECONDS Prothromb Time International Ratio 1.0 Activated Partial Thromboplast Time 27.6 SECONDS 105.9 SECONDS Partial Thromboplastin Ratio 1.1 4.1 Sodium Level 137 mmol/L Potassium Level 3.3 mmol/L Chloride Level 105 mmol/L Carbon Dioxide Level 25 mmol/L Anion Gap 7.0 mmol/L Blood Urea Nitrogen 10 mg/dl Creatinine 0.87 mg/dl Est Creatinine Clear Calc Drug Dose 48.8 ml/min Estimated GFR () 78.2 Estimated GFR (Non- 67.5 BUN/Creatinine Ratio 11.8 Random Glucose 98 mg/dl Calcium Level 9.3 mg/dl Total Bilirubin 0.5 mg/dl Aspartate Amino Transf (AST/SGOT) 19 U/L Alanine Aminotransferase (ALT/SGPT) 23 U/L Alkaline Phosphatase 100 U/L Total Creatine Kinase 65 U/L Creatine Kinase MB 0.9 ng/ml Creatine Kinase MB Ratio 1.4 Total Protein 7.5 gm/dl Albumin 4.3 gm/dl Globulin 3.2 gm/dl Albumin/Globulin Ratio 1.4 Bedside Troponin I < 0.030 ng/ml Magnesium Level 2.3 mg/dl Troponin I < 0.015 ng/ml Test 01/29/18 08:23 01/29/18 09:49 01/29/18 16:40 Estimated Average Glucose 108 mg/dl Hemoglobin A1c 5.4 % Troponin I < 0.015 ng/ml < 0.015 ng/ml Triglycerides Level 57 mg/dl Cholesterol Level 161 mg/dl HDL Cholesterol 55 mg/dl LDL Cholesterol, Calculated 95 mg/dl VLDL Cholesterol, Calculated 11 mg/dl Cholesterol/HDL Ratio 2.9 Consultations: cardiology: ASSESSMENT AND PLAN: 1. 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 Her chest discomfort is atypical and not likely ischemic in origin as she has had several hours of chest discomfort with negative troponins. Given her dyspnea with exertion, however, a dobutamine stress echo was ordered. She states that she is unable to walk on a treadmill. If unremarkable, we would recommend further evaluation for noncardiac chest pain. Musculoskeletal pain is a possibility as she is tender in that area reproducing her pain. Heparin drip can be discontinued as she does not have unstable angina. 2. Coronary artery disease: She has mild nonobstructive coronary artery disease per report from March 2016 coronary angiography. Cardiac catheterization report requested for review. Continue aspirin 81 mg daily. This was ordered at this time. We would recommend high intensity statin therapy, but that there have been concerns for statin-induced myalgias. No change was made to her chronic dose of pravastatin. Blood pressure control is important. Continue ARB. She is not on a beta-marybeth. She has had reported bradycardia in the past with symptoms. 3. Hypertension: She tends to be hypertensive in the evenings. HCTZ 12.5 mg daily added to her current regimen. Hypertension may have played a role in her chest discomfort as well, although there appears to be a musculoskeletal component. 4. Dyspnea with exertion: Etiology uncertain. There is a concern for emphysema according to radiology on chest x-ray imaging. Dobutamine stress echo ordered. If unremarkable, we would recommend further evaluation from a pulmonary status. She apparently had a negative D-dimer recently despite these symptoms for the past 4 months. 5. Disposition: If dobutamine stress echo is unremarkable, no further cardiac evaluation necessary as an inpatient. She has an appointment already scheduled in the next 2-3 weeks in the [facility] office. She was advised to keep this appointment. The patient's care has been communicated with Dr. Gaines of the primary hospitalist service. Thank for allowing me to participate in care of Ms. Sibley. Medication Reconciliation Continued Medications: Acetaminophen (Tylenol) 500 Mg Tab 500 MG PO Q8 PRN for Pain, TAB Amlodipine (Norvasc) 5 Mg Tab 5 MG PO DAILY, TAB Aspirin (Aspirin Ec) 81 Mg Tab 81 MG PO DAILY Cholecalciferol (Vitamin D3) 2,000 Unit Tab 2000 UNITS PO DAILY Coenzyme Q10 (Ubidecarenone) (Coq-10) 100 Mg Cap 100 MG PO DAILY Cyanocobalamin (Vitamin B12 500MCG) 500 Mcg Tab 500 MCG PO DAILY, TAB Fish Oil ([place]-3) 1 Ea Cap 1200 MG PO DAILY, CAP Losartan Potassium (Cozaar) 50 Mg Tab 50 MG PO QAM Multivitamin (Multivitamin) Tab 1 TAB PO DAILY, TAB Omeprazole (Prilosec) 20 Mg Capcr 20 MG PO DAILY, CAP Pravastatin (Pravachol ) 20 Mg Tab 20 MG PO DAILY, TAB Discharge Exam Physical Exam: General Appearance: no apparent distress Eyes: EOMI ENT: hearing grossly normal Neck: trachea midline Respiratory/Chest: no respiratory distress, no accessory muscle use 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 -enzymes were negative ruling out ACS -stress test negative making coronary disease in general highly unlikely -appearing most c/w musculoskeletal pain from neck/spine w secondary dysfunction of shoulder girdle muscles leading to chest pain -stable for home -to f/u PCP and ortho --> as long as no other etiology noted, d/w pt referral to Dr Brayden Shields DO for trial of OMT for neck/shoulder/chest pain Total Time Spent: Less than 30 minutes This includes examination of the patient, discharge planning, medication reconciliation, and communication with other providers. Discharge Instructions Please refer to the electronic Patient Visit Report (Discharge Instructions) for additional information. Additional Copies To Cousins, Miguel D.O.; Yonatan Chamorro M.D.
[2018-01-30] MEDS ORDERED: HYDROCHLOROTHIAZIDE 25 MG TAB PO SCH (09:00)
[2018-01-30] MEDS ORDERED: ASPIRIN 81 MG ECTAB PO SCH (09:00)
== END 2018-01-29 17:05 | disposition home or self-care (01) ==
LOC: C.EDB 21:15 → C.MED 01-29 00:26 → ENRESERV 01-29 00:38
PROVIDERS: ADMIT Hospitalist; ATTEND Family Medicine
DX: R07.9 Chest pain, unspecified (principal); I25.10 Atherosclerotic heart disease of native coronary artery without angina pectoris; I10 Essential (primary) hypertension; R06.09 Other forms of dyspnea; E78.5 Hyperlipidemia, unspecified; R00.2 Palpitations; M81.0 Age-related osteoporosis without current pathological fracture; K21.9 Gastro-esophageal reflux disease without esophagitis; E87.6 Hypokalemia; Z82.49 Family history of ischemic heart disease and other diseases of the circulatory system; Z82.3 Family history of stroke; Z83.3 Family history of diabetes mellitus; Z91.040 Latex allergy status; Z91.048 Other nonmedicinal substance allergy status; Z79.82 Long term (current) use of aspirin

== ENCOUNTER → 2018-02-16 | Outpatient (CLI) | payer OTHER, MEDICARE ==
[~2018-02-16] MED LIST: ACET-1256 PO; AMLO-110 PO; ASPI81TA28 PO; CHOL20007 PO; COEN100C11 PO; CYAN500T13 PO; LOSA50TA6 PO; MULT-506 PO; OMEG10007 PO; PRAV20TA PO; PRLSR20 PO
== END | disposition home or self-care (01) ==
LOC: C.LABMFLN 10:48
PROVIDERS: ATTEND Family Medicine
DX: E87.6 Hypokalemia (principal)